=== PATIENT | female | born 1950 | race Caucasian/White ===

== ENCOUNTER 2021-10-04 08:25 | Outpatient (CLI) | payer OTHER | END 2021-10-04 08:35 | disposition home or self-care (01) | LOC: SONOGRAMA 08:25 | PROVIDERS: ATTEND Physical Medicine & Rehabilitation | DX: M79.641 Pain in right hand (principal) ==

== ENCOUNTER 2022-01-12 09:51 | Outpatient (CLI) | payer OTHER | END 2022-01-12 09:54 | disposition home or self-care (01) | LOC: RAD 09:51 | PROVIDERS: ATTEND Internal Medicine Endocrinology, Diabetes & Metabolism | DX: E04.8 Other specified nontoxic goiter (principal) ==

== ENCOUNTER 2022-03-08 11:28 | Outpatient (CLI) | payer OTHER | END 2022-03-08 11:31 | disposition home or self-care (01) | LOC: SONOGRAMA 11:28 | PROVIDERS: ATTEND Pathology Anatomic Pathology & Clinical Pathology | DX: E04.2 Nontoxic multinodular goiter (principal) ==

== ENCOUNTER 2024-04-16 16:12 | Outpatient (CLI) | payer OTHER | END 2024-04-16 16:13 | disposition home or self-care (01) | LOC: RAD 16:12 | PROVIDERS: ATTEND Internal Medicine | DX: R06.00 Dyspnea, unspecified (principal) ==

== ENCOUNTER 2024-08-07 08:26 | Outpatient (CLI) | payer OTHER | END 2024-08-07 08:39 | disposition home or self-care (01) | LOC: MAMO-SONO 08:26 | PROVIDERS: ATTEND Internal Medicine | DX: N64.9 Disorder of breast, unspecified (principal); Z12.31 Encounter for screening mammogram for malignant neoplasm of breast ==

== ENCOUNTER 2024-08-11 15:54 | Outpatient (CLI) | payer OTHER | END 2024-08-11 16:01 | disposition home or self-care (01) | LOC: RAD 15:54 | PROVIDERS: ATTEND Podiatrist | DX: M79.672 Pain in left foot (principal); M77.32 Calcaneal spur, left foot ==

== ENCOUNTER 2025-04-12 09:36 | Outpatient (CLI) | payer OTHER | END 2025-04-12 09:41 | disposition home or self-care (01) | LOC: SONOGRAMA 09:36 | PROVIDERS: ATTEND Internal Medicine | DX: E04.2 Nontoxic multinodular goiter (principal) ==

== ENCOUNTER 2025-08-10 09:47 | Outpatient (CLI) | payer OTHER | END 2025-08-10 09:50 | disposition home or self-care (01) | LOC: MAMO-SONO 09:47 | PROVIDERS: ATTEND Internal Medicine | DX: N64.9 Disorder of breast, unspecified (principal); Z12.31 Encounter for screening mammogram for malignant neoplasm of breast ==

== ENCOUNTER 2025-08-23 10:23 | Outpatient (CLI) | payer OTHER | END 2025-08-23 10:25 | disposition home or self-care (01) | LOC: NUCLEAR 10:23 | PROVIDERS: ATTEND Internal Medicine | DX: M81.0 Age-related osteoporosis without current pathological fracture (principal) ==